=== PATIENT | male | born 1980 ===

== ENCOUNTER 2025-08-31 07:40 | Outpatient (CLI) | payer OTHER | END 2025-08-31 07:45 | disposition home or self-care (01) | LOC: SONOGRAMA 07:40 | DX: R22.1 Localized swelling, mass and lump, neck (principal) ==

== ENCOUNTER 2025-09-09 13:40 | Outpatient (CLI) | payer OTHER | END 2025-09-09 13:43 | disposition home or self-care (01) | LOC: SONOGRAMA 13:40 | PROVIDERS: ATTEND Pathology Anatomic Pathology & Clinical Pathology | DX: R59.0 Localized enlarged lymph nodes (principal) ==